=== PATIENT | male | born 1990 | race Caucasian/White ===

== ENCOUNTER → 2016-03-08 | Outpatient (CLI) | payer BC ==
--- NOTE | 2016-03-08 14:01 | US ---
EXAMINATION TYPE: US abdomen limited DATE OF EXAM: 03/08/2016 10:35 AM COMPARISON: NONE CLINICAL HISTORY: 25-year-old male elevated liver enzymes, patient stated just discontinued drinking alcohol TECHNIQUE: Multiple sonographic images of the right upper quadrant are obtained. FINDINGS: Liver Length: 17.1 cm Gallbladder Wall: 0.3 cm CBD: 0.4 cm Right Kidney: 10.0 x 6.2 x 5.2 cm Pancreas: Suboptimal visualization secondary to shadowing from bowel gas. Liver: Borderline enlarged with diffuse increased echogenicity relative to the adjacent right kidney . No focal lesion is seen. Gallbladder: No abnormal gallbladder distention, wall thickening, pericholecystic fluid, or shadowin g calculi. Evidence for sonographic Harper's sign: No CBD: Within normal limits. Right Kidney: No hydronephrosis. IMPRESSION: Borderline hepatomegaly with findings suggesting underlying mild to moderate hepatic steatosis. Corre late with LFTs, lipid profile, and patient risk factors.
== END | disposition home or self-care (01) ==
LOC: RADUSWWP 10:05
PROVIDERS: ATTEND Family Medicine
DX: R16.0 Hepatomegaly, not elsewhere classified (principal); R94.5 Abnormal results of liver function studies
CPT/HCPCS: 76705

== ENCOUNTER → 2022-10-06 | Outpatient (CLI) | payer SELFPAY ==
[2022-10-06 15:14] LABS: Basophils # (A) 0.15 X 10*3/uL (0.00-0.10); Basophils % (A) 1.6 %; Eosinophils # (A) 0.59 X 10*3/uL (0.04-0.35); Eosinophils % (A) 6.4 %; HCT 47.7 % (39.6-50.0); HGB 15.4 d/dL (13.0-17.0); Lymphocytes # (A) 1.57 X 10*3/uL (0.90-5.00); Lymphocytes % (A) 17.1 %; MCH 32.5 pg (27.0-32.0); MCHC 32.3 d/dL (32.0-37.0); MCV 100.6 FL (80.0-97.0); Mean Platelet Volume 11.7 FL (9.5-12.2); Monocytes # (A) 0.74 X 10*3/uL (0.20-1.00); Monocytes % (A) 8.1 %; NRBC Per 100 WBC 0 X 10*3/uL (0.00-0.01); Neutrophils % (A) 66.5 %; Platelet Count 150 X 10*3/uL (140-440); RBC 4.74 X 10*6/uL (4.40-5.60); RDW 14.2 % (11.5-14.5); WBC 9.18 X 10*3/uL (4.50-10.00)
[2022-10-06 15:40] LABS: Chol/HDL Ratio 5.08 Ratio; LDL Cholesterol,Calculated 95.1 mg/dL (0.0-131.0)
[2022-10-06 16:23] LABS: ALT 54 U/L (10-49); AST 119 U/L (14-35); Albumin 3.9 d/dL (3.8-4.9); Albumin/Globulin Ratio 0.91 Ratio (1.60-3.17); Alkaline Phosphatase 154 U/L (41-126); BUN/Creat Ratio 7.62 Ratio (12.00-20.00); Blood Urea Nitrogen 6.1 mg/dL (9.0-27.0); Calcium 9.6 mg/dL (8.7-10.3); Carbon Dioxide 24.9 mmol/L (21.6-31.8); Chloride 102 mmol/L (96-109); Globulin 4.3 d/dL (1.6-3.3); Glucose 97 mg/dL (70-110); Potassium 4.2 mmol/L (3.5-5.5); Sodium 137 mmol/L (135-145); Total Bilirubin 2.2 mg/dL (0.3-1.2); Total Protein 8.2 d/dL (6.2-8.2)
== END | disposition home or self-care (01) ==
LOC: LABWHC1 11:16
PROVIDERS: ATTEND Family Medicine
DX: I10 Essential (primary) hypertension (principal); B89 Unspecified parasitic disease; Z79.899 Other long term (current) drug therapy
CPT/HCPCS: 36415; 80053; 80061; 83036; 84443; 85025; 87086

== ENCOUNTER → 2022-11-17 | Outpatient (CLI) | payer SELFPAY ==
--- NOTE | 2022-11-17 09:54 | US ---
EXAMINATION TYPE: US liver DATE OF EXAM: 11/17/2022 COMPARISON: CLINICAL INDICATION: Male, 32 years old with history of E80.7 DISORDER OF BILIRUBIN METABOLISM, UNSPE CIFIE; Abnormal Labs. Previous drinker. TECHNIQUE: Multiple sonographic images of the right upper quadrant are obtained. FINDINGS: EXAM MEASUREMENTS: Liver Length: 19.3 cm Gallbladder Wall: 0.6 cm CBD: 0.6 cm Right Kidney: 12.1 x 5.5 x 5.1 cm Pancreas: Head and tail obscured by overlying bowel gas Liver: Enlarged in size. Caudate lobe appears enlarged in size. Right posterior lobe cystic lesion = 0.7 x 0.8 x 0.5 cm Gallbladder: Possible focal wall thickening. No stones seen at time of scan. Evidence for sonographic Harper's sign: neg CBD: wnl Right Kidney: No hydronephrosis or masses seen ~Incidental finding: midline lymph node adjacent to pancreatic head with short axis = 1.3 cm IMPRESSION: 1. Hepatomegaly with hepatic cysts. 2. Focal gallbladder wall thickening could reflect adherent stone or polyp.
== END | disposition home or self-care (01) ==
LOC: RADUSWWP 08:41
PROVIDERS: ATTEND Family Medicine
DX: E80.7 Disorder of bilirubin metabolism, unspecified (principal); K76.89 Other specified diseases of liver; R16.0 Hepatomegaly, not elsewhere classified; K82.8 Other specified diseases of gallbladder
CPT/HCPCS: 76705

== ENCOUNTER → 2024-01-23 | Outpatient (CLI) | payer OTHER ==
[2024-01-23 14:52] LABS: HCT 28.1 % (39.6-50.0); HGB 8.5 g/dL (13.0-17.0); MCH 31.1 pg (27.0-32.0); MCHC 30.2 g/dL (32.0-37.0); MCV 102.9 FL (80.0-97.0); Mean Platelet Volume 10.8 FL (9.5-12.2); NRBC Per 100 WBC 0 X 10*3/uL (0.00-0.01); Platelet Count 351 X 10*3/uL (140-440); RBC 2.73 X 10*6/uL (4.40-5.60); RDW 17.9 % (11.5-14.5); WBC 13.16 X 10*3/uL (4.50-10.00)
[2024-01-23 15:23] LABS: Magnesium 1.5 mg/dL (1.5-2.4); Phosphorus 3.2 mg/dL (2.4-5.1)
[2024-01-23 15:38] LABS: Basophils # (A) 0.22 X 10*3/uL (0.00-0.10); Basophils % (A) 1.7 %; Eosinophils # (A) 0.35 X 10*3/uL (0.04-0.35); Eosinophils % (A) 2.7 %; Lymphocytes # (A) 0.79 X 10*3/uL (0.90-5.00); Neutrophils # (A) 9.52 X 10*3/uL (1.80-7.70); Neutrophils % (A) 72.2 %; RBC Morphology Normal (Normal)
[2024-01-23 15:42] LABS: BUN/Creat Ratio 24.89 Ratio (12.00-20.00); Blood Urea Nitrogen 22.4 mg/dL (9.0-27.0); Glucose 126 mg/dL (70-110)
[2024-01-23 15:43] LABS: ALT 53 U/L (10-49); AST 29 U/L (14-35); Albumin 3.7 g/dL (3.8-4.9); Albumin/Globulin Ratio 1.48 Ratio (1.60-3.17); Alkaline Phosphatase 161 U/L (41-126); Calcium 9.3 mg/dL (8.7-10.3); Carbon Dioxide 22.7 mmol/L (21.6-31.8); Chloride 106 mmol/L (96-109); Globulin 2.5 g/dL (1.6-3.3); Potassium 4.8 mmol/L (3.5-5.5); Sodium 138 mmol/L (135-145); Total Bilirubin 2.6 mg/dL (0.3-1.2); Total Protein 6.2 g/dL (6.2-8.2)
== END | disposition home or self-care (01) ==
LOC: LABWHC1 08:12
DX: Z94.4 Liver transplant status (principal)
CPT/HCPCS: 36415; 80053; 83735; 84100; 85025

== ENCOUNTER → 2024-02-14 | Outpatient (CLI) | payer OTHER ==
[2024-02-14 15:45] LABS: Basophils # (A) 0.18 X 10*3/uL (0.00-0.10); Basophils % (A) 1.8 %; Eosinophils # (A) 0.57 X 10*3/uL (0.04-0.35); Eosinophils % (A) 5.5 %; HCT 32.4 % (39.6-50.0); HGB 9.9 g/dL (13.0-17.0); Lymphocytes % (A) 11.7 %; MCH 29.6 pg (27.0-32.0); MCHC 30.6 g/dL (32.0-37.0); Mean Platelet Volume 9.7 FL (9.5-12.2); Monocytes # (A) 1.03 X 10*3/uL (0.20-1.00); NRBC Per 100 WBC 0 X 10*3/uL (0.00-0.01); Neutrophils # (A) 7.24 X 10*3/uL (1.80-7.70); Neutrophils % (A) 70.4 %; Platelet Count 344 X 10*3/uL (140-440); RBC 3.34 X 10*6/uL (4.40-5.60); WBC 10.28 X 10*3/uL (4.50-10.00)
[2024-02-14 15:54] LABS: ALT 50 U/L (10-49); AST 13 U/L (14-35); Albumin 3.9 g/dL (3.8-4.9); Alkaline Phosphatase 278 U/L (41-126); BUN/Creat Ratio 22.64 Ratio (12.00-20.00); Blood Urea Nitrogen 24.9 mg/dL (9.0-27.0); Calcium 9.9 mg/dL (8.7-10.3); Carbon Dioxide 25.6 mmol/L (21.6-31.8); Chloride 103 mmol/L (96-109); Glucose 127 mg/dL (70-110); Magnesium 1.4 mg/dL (1.5-2.4); Phosphorus 4.4 mg/dL (2.4-5.1); Potassium 4.6 mmol/L (3.5-5.5); Sodium 140 mmol/L (135-145); Total Bilirubin 1.3 mg/dL (0.3-1.2); Total Protein 6.9 g/dL (6.2-8.2)
[2024-02-14 16:12] LABS: INR 1.05 sec (0.93-1.11); Prothrombin Time 11.7 sec (9.9-11.9)
== END | disposition home or self-care (01) ==
LOC: LABWHC1 08:39
PROVIDERS: ATTEND Surgery
DX: K70.30 Alcoholic cirrhosis of liver without ascites (principal); Z94.4 Liver transplant status; Z79.60 Long term (current) use of unspecified immunomodulators and immunosuppressants
CPT/HCPCS: 36415; 80048; 80076; 83735; 84100; 85025; 85610

== ENCOUNTER → 2024-02-20 | Outpatient (CLI) | payer OTHER | LOC: LABWHC1 09:34 | PROVIDERS: ATTEND Surgery | DX: Z94.4 Liver transplant status (principal); Z79.60 Long term (current) use of unspecified immunomodulators and immunosuppressants ==